=== PATIENT | male | born 1950 | race Caucasian/White ===

== ENCOUNTER 2017-12-08 17:54 | Emergency (ER) | payer BC ==
[2017-12-08] MEDS ORDERED: Albuterol-Ipratrop 3 mg / 0.5 (3 ml) UD INH STA (18:25)
--- NOTE | 2017-12-08 18:26 | C.PDOC ---
History Of Present Illness Pt is a 67 years old male presents to ED for complaints of bodyaches, headache, chest congestion, sore throat, cough (no phlegm), fever, and no appetite that began 2 days ago. Patient states he did not take the flu shot this year. Patient also states a family member came from [facility] sick 4 days ago. Patient states he smokes and drinks but denies drug use or any other complaints. <Lance Ross Jr. - Last Filed: 12/08/17 19:03> History Per: Patient History/Exam Limitations: no limitations Onset/Duration Of Symptoms: Hrs Current Symptoms Are (Timing): Still Present Location Of Pain: Throat, Diffuse Myalgias, Headache Sick Contacts (Context): Family Member(s) Associated Symptoms: Fever, Cough, Myalgias, Nasal Congestion. denies: Chills, Vomiting, Diarrhea Ear Symptoms: Bilateral: None Recent travel outside of the [place]: No <Lance Ross Jr. - Last Filed: 12/08/17 19:03> <Rc Mooney - Last Filed: 12/08/17 20:50> Time Seen by Provider: 12/08/17 18:17 Chief Complaint (Nursing): Flu-like Symptoms Past Medical History Reviewed: Historical Data, Nursing Documentation, Vital Signs Vital Signs: Last Vital Signs Temp 103 F H 12/08/17 18:03 Pulse 106 H 12/08/17 18:03 Resp 19 12/08/17 18:03 BP 127/84 12/08/17 18:03 Pulse Ox 98 12/08/17 18:03 - Medical History PMH: CAD Family History: States: Other Other Family History: Cancer - Social History Hx Tobacco Use: Yes Hx Alcohol Use: Yes Hx Substance Use: No - Immunization History Hx Tetanus Toxoid Vaccination: No Hx Influenza Vaccination: Yes Hx Pneumococcal Vaccination: No <Lance Ross Jr. - Last Filed: 12/08/17 19:03> Vital Signs: Last Vital Signs Temp 103 F H 12/08/17 18:03 Pulse 106 H 12/08/17 18:03 Resp 19 12/08/17 18:03 BP 127/84 12/08/17 18:03 Pulse Ox 98 12/08/17 19:08 <Rc Mooney - Last Filed: 12/08/17 20:50> Review Of Systems Constitutional: Positive for: Fever, Weakness. Negative for: Chills ENT: Positive for: Nose Congestion Cardiovascular: Positive for: Other (Chest congestion ) Respiratory: Positive for: Cough. Negative for: Shortness of Breath Gastrointestinal: Negative for: Nausea, Vomiting, Abdominal Pain, Diarrhea, Constipation Skin: Negative for: Rash Neurological: Positive for: Headache. Negative for: Weakness, Numbness <Lance Ross Jr. - Last Filed: 12/08/17 19:03> Physical Exam - Physical Exam Appears: Well, Non-toxic, No Acute Distress Skin: Normal Color, Warm, Dry, No Rash Head: Atraumatic, Normacephalic Eye(s): bilateral: Normal Inspection, PERRL, EOMI Ear(s): Bilateral: Normal Nose: Normal Oral Mucosa: Moist Tongue: Normal Appearing Lips: Normal Appearing Teeth: Normal Dentition Gingiva: Normal Appearing Throat: Normal, No Erythema, No Exudate, No Drooling Neck: Normal ROM, Supple Chest: Symmetrical, No Tenderness Cardiovascular: Rhythm Regular, No Murmur Respiratory: Normal Breath Sounds, No Rales, No Rhonchi, No Wheezing Gastrointestinal/Abdominal: Normal Exam, Bowel Sounds (Active ), Soft, No Tenderness, No Distention, No Guarding, No Rebound Back: Normal Inspection Extremity: Normal ROM Extremity: Bilateral: Atraumatic, Normal Color And Temperature, Normal ROM Pulses: Left Radial: Normal, Right Radial: Normal Neurological/Psych: Oriented x3, Normal Speech, Other (No focal deficits) Gait: Steady <Lance Ross Jr. - Last Filed: 12/08/17 19:03> ED Course And Treatment - Laboratory Results Result Diagrams: 12/08/17 18:42 O2 Sat by Pulse Oximetry: 98 (RA) Pulse Ox Interpretation: Normal <Lance Ross Jr. - Last Filed: 12/08/17 19:03> - Laboratory Results Result Diagrams: 12/08/17 18:42 12/08/17 18:50 Pulse Ox Interpretation: Normal - Radiology CXR: Interpreted by Me, Viewed By Me CXR Interpretation: No: Infiltrates, Fracture, Pnemothorax <Rc Mooney - Last Filed: 12/08/17 20:50> Medical Decision Making Medical Decision Making: Plan: * Albuterol Nebulizer Treatment/Peak flow * Tylenol * BG * EKG * Blood work * CXR * Blood Culture * Urine Culture * Flu AB Swab * Urinalysis <Lance Ross Jr. - Last Filed: 12/08/17 19:03> Disposition - Disposition Disposition Time: 19:07 <Lance Ross Jr. - Last Filed: 12/08/17 19:03> Counseled Patient/Family Regarding: Studies Performed, Diagnosis, Need For Followup <Rc Mooney - Last Filed: 12/08/17 20:50> - Disposition Referrals: [facility] [Outside] [facility] [Outside] Disposition: HOME/ ROUTINE Condition: FAIR Additional Instructions: Please return if symptoms recur Prescriptions: Azithromycin [Zithromax Tri-Chapito] 500 mg PO DAILY #3 tablet Instructions: Upper Respiratory Infection (ED) Forms: [facility] [facility] (Ecuadorean) - Clinical Impression Clinical Impression: Upper respiratory infection - Scribe Statement The provider has reviewed the documentation as recorded by the Scribe Alber Uribe All medical record entries made by the Scribe were at my direction and personally dictated by me. I have reviewed the chart and agree that the record accurately reflects my personal performance of the history, physical exam, medical decision making, and the department course for this patient. I have also personally directed, reviewed, and agree with the discharge instructions and disposition. <Lance Ross Jr. - Last Filed: 12/08/17 19:03> Physician Patient Turnover Patient Signed Over To: Rc Mooney Handoff Comments: To follow up labs and reassess patient and dispo accordingly. <Lance Ross Jr. - Last Filed: 12/08/17 19:03>
[2017-12-08] MEDS ORDERED: Sodium Chloride 0.9% 1,000 ML ONE (18:27)
[2017-12-08 18:47] LABS: BASO % 0.6 % (0.0-2.0); EOS % 0.1 % (0.0-4.0); HEMOGLOBIN 14.1 g/dL (12.0-18.0); LYMPH # 1.4 K/uL (1.0-4.3); LYMPH % 16.6 % (20.0-40.0); MEAN CELL VOLUME 92.1 fL (80.0-94.0); MEAN CORPUSCULAR HEMOGLOBIN 31.2 pg (27.0-31.0); MEAN CORPUSCULAR HGB CONC 33.9 g/dL (33.0-37.0); MEAN PLATELET VOLUME 7.4 fL (7.2-11.7); MONO % 11.8 % (0.0-10.0); NEUT # 5.8 K/uL (1.8-7.0); NEUT % 70.9 % (50.0-75.0); NRBC % 0.1 % (0.0-2.0); RBC 4.52 Mil/uL (4.40-5.90); RED CELL DISTRIBUTION WIDTH 13.5 % (11.5-14.5); WHITE BLOOD COUNT 8.2 K/uL (4.8-10.8)
[2017-12-08 18:55] LABS: SQUAMOUS EPITHIAL < 1 /hpf (0-5); URINE BILIRUBIN NEGATIVE (NEGATIVE); URINE BLOOD 2+ (NEGATIVE); URINE CLARITY Clear (Clear); URINE COLOR Yellow (YELLOW); URINE GLUCOSE (UA) NORMAL (Normal); URINE LEUKOCYTE ESTERASE NEG Leu/uL (Negative); URINE PROTEIN NEGATIVE (NEGATIVE)
[2017-12-08 18:56] LABS: VENOUS BLOOD GAS BASE EXCESS -3.4 mmol/L (0.0-2.0); VENOUS BLOOD GAS PCO2 32 mmHg (40-60); VENOUS BLOOD GAS PO2 39 mm/Hg (30-55); VENOUS BLOOD PH 7.41 (7.32-7.43)
[2017-12-08 19:07] LABS: INR 1.2; PROTHROMBIN TIME 12.7 SECONDS (9.7-12.2)
[2017-12-08 19:45] VITALS: RESP 18
[2017-12-08 19:51] LABS: ALB/GLOB RATIO 1.2 (1.0-2.1); ALBUMIN 3.7 g/dL (3.5-5.0); ALT/SGPT 54 U/L (21-72); AST/SGOT 56 U/L (17-59); BLOOD UREA NITROGEN 13 mg/dL (9-20); CALCIUM 8.6 mg/dl (8.6-10.4); GFR NON-AFRICAN AMERICAN > 60
[2017-12-08 21:09] VITALS: BP 111/63; PULSE 89; TEMP 99.7; O2SAT 98
--- NOTE | 2017-12-09 09:49 | RAD ---
Date of service: 12/08/2017 HISTORY: cough COMPARISON: No prior. FINDINGS: LUNGS: No active pulmonary disease. PLEURA: No significant pleural effusion identified, no pneumothorax apparent. CARDIOVASCULAR: No aortic atherosclerotic calcification present. Prominent cardiac silhouette. No definite pulmonary vascular congestion. OSSEOUS STRUCTURES: No significant abnormalities. VISUALIZED UPPER ABDOMEN: Normal. OTHER FINDINGS: None. IMPRESSION: Borderline cardiomegaly. No definite pulmonary vascular congestion. No airspace disease bilaterally.
--- NOTE | 2017-12-11 15:53 | CARD ---
APPROVED REPORT Date of service: 12/08/2017 EKG Measurement Heart [id number] <Conclusion> Normal sinus rhythm Normal Electrocardiogram
== END 2017-12-08 21:22 | disposition home or self-care (01) ==
LOC: C.ER 17:54
DX: J06.9 Acute upper respiratory infection, unspecified (principal); F17.210 Nicotine dependence, cigarettes, uncomplicated